=== PATIENT | female | born 1990 | race Asian ===

== ENCOUNTER 2024-05-30 09:16 | Day surgery (SDC) | payer OTHER ==
[2024-05-30 09:53] VITALS: BMI 22.4
== END 2024-05-30 10:41 | disposition home or self-care (01) ==
LOC: CSHLD/OP 09:16
PROVIDERS: ATTEND Student in an Organized Health Care Education/Training Program
DX: O99.891 Other specified diseases and conditions complicating pregnancy (principal); R10.12 Left upper quadrant pain; O34.211 Maternal care for low transverse scar from previous cesarean delivery; Z79.899 Other long term (current) drug therapy; Z3A.32 32 weeks gestation of pregnancy
CPT/HCPCS: 99282

== ENCOUNTER 2024-07-18 05:45 | Inpatient (IN) | payer OTHER ==
[2024-07-17 11:28] LABS: Hematocrit 39.8 % (34.9-44.5); Hemoglobin 13.1 g/dL (12.0-15.5); Mean Corpuscular HGB CONC 32.9 g/dL (32.0-36.0); Mean Corpuscular Hemoglobin 30.5 pg (27.0-33.0); Mean Corpuscular Volume 92.8 fL (81.6-98.3); Mean Platelet Volume 10.6 fL (7.4-10.4); Platelet Count 220 10x3/uL (150-450); RBC Distribution Width 12.9 % (11.5-14.5); Red Blood Cell (RBC) Count 4.29 10x6/uL (3.90-5.03); White Blood Cell (WBC) Count 6.3 10x3/uL (3.5-10.5)
[2024-07-17 11:54] LABS: HBsAg Index 0.21 S/CO (0-0.99); Hep B Surf Ag Non-Reactive S/CO (NonReactive)
[2024-07-17 11:55] LABS: Syphilis Antibody Nonreactive (Nonreactive); Syphilis Antibody Index 0.06 S/CO (<1.00 Non-Reactive)
[2024-07-18 06:18] VITALS: BMI 27.0
[2024-07-18] MEDS ORDERED: Naloxone HCl 0.4 mg/ml Vial IV PRN (06:56)
[2024-07-18] MEDS ORDERED: fentaNYL 50 mcg/mL 1 mL Vial SLOW IVP PRN (06:56)
[2024-07-18] MEDS ORDERED: Naloxone HCl 0.4 mg/ml Vial IVP PRN ×2 (06:56)
[2024-07-18] MEDS ORDERED: Promethazine HCl 25 MG/ML VIAL IM PRN ×2 (06:56→07:11)
[2024-07-18] MEDS ORDERED: HYDROmorphone 0.5 MG/0.5 ML SYRINGE SLOW IVP PRN (06:56)
[2024-07-18] MEDS ORDERED: Moisturizing Cream (Eucerin) 113 GM JAR TOP PRN (06:56)
[2024-07-18] MEDS ORDERED: Meperidine HCl/PF 25 MG (1 mL) VIAL SLOW IVP PRN (06:56)
[2024-07-18] MEDS ORDERED: diphenhydrAMINE 50 MG/ML VIAL IVP PRN (06:56)
[2024-07-18] MEDS ORDERED: Ondansetron PF 4 MG/2 ML Vial IVP PRN ×3 (06:56→07:11)
[2024-07-18] MEDS ORDERED: Communication Order-Pharmacy FS SCH (07:00)
[2024-07-18] MEDS ORDERED: Bicitra 30 ML UDCUP PO PRN (07:11)
[2024-07-18] MEDS ORDERED: Methylergonovine 0.2 MG/ML VIAL IM PRN (07:11)
[2024-07-18] MEDS ORDERED: Diphenoxylate HCl/Atropine Tablet PO PRN (07:11)
[2024-07-18] MEDS ORDERED: Carboprost 250 MCG/ML AMP IM PRN (07:11)
[2024-07-18] MEDS ORDERED: Famotidine/PF 20 mg/2ml Vial SLOW IVP PRN (07:11)
[2024-07-18] MEDS ORDERED: Misoprostol 200 MCG TAB PR PRN (07:11)
[2024-07-18] MEDS ORDERED: hydrALAZINE 20 MG/ML VIAL SLOW IVP PRN ×2 (07:11→11:32)
[2024-07-18] MEDS ORDERED: Lactated Ringer's 1,000 ML IV SCH (07:15)
[2024-07-18] MEDS ORDERED: CEFAZOLIN 2 GM in Sodium Chloride 0.9% 100 ML IVPB SCH (07:15)
[2024-07-18] MEDS ORDERED: Oxytocin 30 units/NS 500 ML 500 ML IV SCH (07:15)
[2024-07-18] MEDS: Ketorolac Tromethamine 30 MG (1 mL) VIAL IVP SCH ×2 (09:38→15:07)
[2024-07-18] MEDS ORDERED: Bisacodyl 10 MG SUPP PR PRN (11:32)
[2024-07-18] MEDS ORDERED: Simethicone Chewable 80 MG TAB PO PRN (11:32)
[2024-07-18] MEDS: fentaNYL 50 mcg/mL 1 mL Vial ONE (14:01)
[2024-07-18] MEDS: Ondansetron PF 4 MG/2 ML Vial ONE (14:01)
[2024-07-18] MEDS: Oxytocin 10 UNITS/ML VIAL ONE (14:01)
[2024-07-18] MEDS: Morphine PF 10 MG/10 ML VIAL ONE (14:01)
[2024-07-18] MEDS: Docusate 100 MG CAP PO SCH ×2 (14:02→21:36)
[2024-07-18] MEDS: PHENYLEPHRINE-NS 100 MCG/ML 10 ML SYRINGE ONE (14:02)
[2024-07-18] MEDS: Boostrix 0.5 ML (Tdap) VIAL (>/=7 yrs of age) IM ONE (14:02)
[2024-07-18] MEDS: Midazolam HCl 2 mg/2 ml Vial ONE (14:02)
[2024-07-18] MEDS: CEFAZOLIN 2 GM VIAL ONE (14:02)
[2024-07-18] MEDS: Prenatal Vitamin 1 TAB PO SCH (14:03)
[2024-07-18] MEDS: Ibuprofen 800 MG TAB PO SCH (14:03)
[2024-07-18] MEDS: Ketorolac Tromethamine 30 MG (1 mL) VIAL IVP PRN (21:36)
[2024-07-19 04:24] LABS: Hematocrit 33.4 % (34.9-44.5); Mean Corpuscular HGB CONC 32.9 g/dL (32.0-36.0); Mean Corpuscular Hemoglobin 30.8 pg (27.0-33.0); Mean Corpuscular Volume 93.6 fL (81.6-98.3); Mean Platelet Volume 10.2 fL (7.4-10.4); Platelet Count 184 10x3/uL (150-450); RBC Distribution Width 12.7 % (11.5-14.5); Red Blood Cell (RBC) Count 3.57 10x6/uL (3.90-5.03); White Blood Cell (WBC) Count 9.6 10x3/uL (3.5-10.5)
[2024-07-19] MEDS: Prenatal Vitamin 1 TAB PO SCH (09:50)
[2024-07-19] MEDS: HYDROcodone/Acetaminophen 5/325 mg Tablet PO PRN (09:50)
[2024-07-20] MEDS: HYDROcodone/Acetaminophen 5/325 mg Tablet PO PRN (17:25)
[2024-07-20 20:10] VITALS: TEMP 98.6
[2024-07-21 08:52] VITALS: BP 117/76
== END 2024-07-21 12:10 | disposition home or self-care (01) | DRG 788 ==
LOC: CSHLD 05:45 → CSHPP 11:55
PROVIDERS: ADMIT Student in an Organized Health Care Education/Training Program; ATTEND Student in an Organized Health Care Education/Training Program
PROC: 10D00Z1 Extraction of Products of Conception, Low, Open Approach (ICD-10-PCS; principal; 2024-07-18)
DX: O34.211 Maternal care for low transverse scar from previous cesarean delivery (principal); Z3A.39 39 weeks gestation of pregnancy; Z37.0 Single live birth; O99.824 Streptococcus B carrier state complicating childbirth
CPT/HCPCS: 36415; 51702; 85027; 86780; 86850; 86900; 86901; 87340; J1885; J2250; J2274; J2405; J2590; J3010